=== PATIENT | female | born 1995 | race Two or more races ===

== ENCOUNTER 2018-05-04 20:07 | Emergency (ER) | payer OTHER ==
[~2018-05-04] VITALS: Ht 154.9 cm; Wt 49.1 kg
[~2018-05-04 20:07] MED LIST: IRON-18 PO; PREN-169 PO
[2018-05-04 20:53] VITALS: BP 124/89
[2018-05-04] MEDS ORDERED: ACETAMINOPHEN 325 MG TABLET PO ONE (21:00)
[2018-05-04] MEDS ORDERED: CEPHALEXIN MONOHYDRATE 500 MG CAPSULE PO ONE (21:00)
== END 2018-05-04 21:05 | disposition home or self-care (01) ==
LOC: EMS 20:08
DX: L03.115 Cellulitis of right lower limb (principal); Z88.1 Allergy status to other antibiotic agents
CPT/HCPCS: 99283